=== PATIENT | female | born 1955 | race Caucasian/White ===

== ENCOUNTER → 2017-06-08 | Outpatient (CLI) | payer BC ==
[~2017-06-08] MED LIST: ACTOS45 MG PO; ASPIR-LOW81 MG PO; BENICAR HCT 201 EACH PO; BENICAR HCT1 TABLE2 PO; CARDIZEM CD240 MG PO; CRESTOR5 MG PO; GEMFIBROZIL600 MG PO; INVOKANA300 MG PO; KOMBIGLYZE XR1 EAC2 PO; METFORMIN HCL500 MG PO; PEN-VEE K,VEET500 MG PO; PROTONIX40 M1 PO; PROTONIX40 MG PO; REGLAN10 MG PO
== END | disposition home or self-care (01) ==
LOC: NUC 06:44
DX: R10.11 Right upper quadrant pain (principal); K21.9 Gastro-esophageal reflux disease without esophagitis; K59.00 Constipation, unspecified; Z80.0 Family history of malignant neoplasm of digestive organs; Z87.11 Personal history of peptic ulcer disease
CPT/HCPCS: 78227; A9537; J2805